=== PATIENT | female | born 1995 ===

== ENCOUNTER 2016-05-31 21:17 | Emergency (ER) | payer MEDICAID ==
[2016-05-31 21:18] VITALS: BMI 26.5
[2016-05-31 21:40] VITALS: BP 123/69; PULSE 72; RESP 16; TEMP 98.2; O2SAT 99
--- NOTE | 2016-05-31 22:13 | ED PDOC ---
HPI: Female Pain Time Seen by Provider: 05/31/16 21:53 Chief Complaint (Nursing): Female Genitourinary Chief Complaint (Provider): vaginal spotting History Per: Patient History/Exam Limitations: no limitations Onset/Duration Of Symptoms: Days (3) Current Symptoms Are (Timing): Still Present Quality Of Discomfort: Cramping Additional History Per: Patient Additional Complaint(s): 20 y/o female presents with vaginal spotting x 3 days. Associated suprapubic cramping, white vaginal discharge. Patient unsure if this is related or if it could just be the start of her period. Denies fever, nausea/vomiting, changes in bowel movements, dysuria, hematuria, new sex partner. Abnormal Vaginal Bleeding: Yes Last Menstral Period: 05/04/16 : 3 Para: 1 Miscarriage: 2 Past Medical History Reviewed: Historical Data, Nursing Documentation, Vital Signs Vital Signs: Last Vital Signs Temp 98.2 F 05/31/16 21:37 Pulse 72 05/31/16 21:37 Resp 16 05/31/16 21:37 BP 123/69 05/31/16 21:37 Pulse Ox 99 05/31/16 21:37 - Medical History PMH: Kidney Stones, Chronic Kidney Disease - Surgical History Surgical History: No Surg Hx - Family History Family History: States: Unknown Family Hx - Living Arrangements Living Arrangements: With Family - Immunization History Hx Tetanus Toxoid Vaccination: Yes Hx Influenza Vaccination: Yes Hx Pneumococcal Vaccination: No - Home Medications Home Medications: Ambulatory Orders Medication Instructions Recorded Acetaminophen [Tylenol Extra 500 mg PO Q6 #20 tablet 05/07/16 Strength] Fluconazole [Diflucan] 150 mg PO ONCE #1 tab 05/31/16 Ibuprofen [Motrin Tab] 1 tab PO Q6 PRN #15 tab 05/31/16 Nitrofurantoin Macrocrystals 100 mg PO BID #14 cap 05/31/16 [Macrobid] - Allergies Allergies/Adverse Reactions: Allergies Allergy/AdvReac Type Severity Reaction Status Date / Time No Known Allergies Allergy Verified 10/09/15 20:09 Review of Systems ROS Statement: Except As Marked, All Systems Reviewed And Found Negative Genitourinary Female: Positive for: Vaginal Discharge, Vaginal Bleeding, Pelvic Pain Physical Exam - Reviewed Nursing Documentation Reviewed: Yes Vital Signs Reviewed: Yes - Physical Exam Appears: Positive for: Well, Non-toxic, No Acute Distress Head Exam: Positive for: ATRAUMATIC, NORMAL INSPECTION, NORMOCEPHALIC Skin: Positive for: Normal Color Eye Exam: Positive for: Normal appearance Cardiovascular/Chest: Positive for: Regular Rate, Rhythm Respiratory: Positive for: Normal Breath Sounds Gastrointestinal/Abdominal: Positive for: Bowel Sounds, Soft, Tenderness ( suprapubic discomfort) Pelvic Exam: Positive for: External Exam Normal, No Cerv. Motion Tender, Discharge (white "cottage cheese" discharge noted vaginal vault), Other (exam chaperoned by Bartolo WILSON). Negative for: Active Bleeding Back: Positive for: Normal Inspection Extremity: Positive for: Normal ROM Neurologic/Psych: Positive for: Alert, Oriented - Laboratory Results Urine POC: Negative Urine dip results: Positive for: Leukocyte Esterase. Negative for: Blood, Nitrate, Ketones - ECG O2 Sat by Pulse Oximetry: 99 - Progress ED Course And Treament: ibuprofen, urine, genital cultures Patient educated on findings, discharged with rx ibuprofen, macrobid, diflucan. Advised follow up [employer]. Return to ED for worsening/concerning symptoms. Disposition - Clinical Impression Clinical Impression: Urinary tract infection, Vaginal candidiasis, Menstrual cramps - Patient ED Disposition Is Patient to be Admitted: No Counseled Patient/Family Regarding: Studies Performed, Diagnosis, Need For Followup, Rx Given - Disposition [facility] Destiney King MD [Staff Provider] - Disposition: Routine/Home Disposition Time: 22:44 Condition: GOOD Prescriptions: Fluconazole [Diflucan] 150 mg PO ONCE #1 tab Nitrofurantoin Macrocrystals [Macrobid] 100 mg PO BID #14 cap Ibuprofen [Motrin Tab] 1 tab PO Q6 PRN #15 tab PRN Reason: Pain, Moderate (4-7) Instructions: Urinary Tract Infection in Women (ED), Vulvovaginal Candidiasis ( ED)
[2016-05-31 22:28] LABS: RBC URINE 8 /hpf (0-3); URINE BACTERIA RARE (<OCC); URINE BILIRUBIN NEGATIVE (NEGATIVE); URINE BLOOD NEGATIVE (NEGATIVE); URINE COLOR YELLOW (YELLOW); URINE GLUCOSE (UA) NEG (Normal); URINE KETONE NEGATIVE (NEGATIVE); URINE LEUKOCYTE ESTERASE LARGE Leu/uL (Negative); URINE PROTEIN NEGATIVE (NEGATIVE); URINE UROBILINOGEN 0.2-1.0 mg/dL (0.2-1.0); WBC URINE 6 /hpf (0-5)
== END 2016-05-31 22:50 | disposition home or self-care (01) ==
LOC: H.ER 21:17
DX: N39.0 Urinary tract infection, site not specified (principal); N89.8 Other specified noninflammatory disorders of vagina; B37.3 Candidiasis of vulva and vagina

== ENCOUNTER 2016-06-06 23:26 | Emergency (ER) | payer MEDICAID ==
[2016-06-06 23:27] VITALS: BMI 26.5
[2016-06-06 23:40] VITALS: BP 136/72; PULSE 94; RESP 16; TEMP 98; O2SAT 100
[2016-06-07] MEDS ORDERED: Sodium Chloride 0.9% 1,000 ML IV STA (00:10)
--- NOTE | 2016-06-07 00:13 | ED PDOC ---
HPI: Headache Time Seen by Provider: 06/06/16 23:39 Chief Complaint (Nursing): Headache Chief Complaint (Provider): headache History Per: Patient History/Exam Limitations: no limitations Onset/Duration Of Symptoms: Days (1) Current Symptoms Are (Timing): Still Present Quality: "Pain" Associated Symptoms: Nausea, Vomiting Additional History Per: Patient Additional Complaint(s): 20 y/o female presents with frontal headache x 1 day. Associated nausea/ vomiting. Denies fever, dizziness, cough/congestion, chest pain, shortness of breath, palpitations, abdominal pain. Past Medical History Reviewed: Historical Data, Nursing Documentation, Vital Signs Vital Signs: Last Vital Signs Temp 98.0 F 06/06/16 23:37 Pulse 94 H 06/06/16 23:37 Resp 16 06/06/16 23:37 BP 136/72 06/06/16 23:37 Pulse Ox 100 06/06/16 23:37 - Family History Family History: States: Unknown Family Hx - Immunization History Hx Tetanus Toxoid Vaccination: Yes Hx Influenza Vaccination: Yes Hx Pneumococcal Vaccination: No - Home Medications Home Medications: Ambulatory Orders Medication Instructions Recorded Acetaminophen [Tylenol Extra 500 mg PO Q6 #20 tablet 05/07/16 Strength] Fluconazole [Diflucan] 150 mg PO ONCE #1 tab 05/31/16 Ibuprofen [Motrin Tab] 1 tab PO Q6 PRN #15 tab 05/31/16 Nitrofurantoin Macrocrystals 100 mg PO BID #14 cap 05/31/16 [Macrobid] Naproxen [Naprosyn Tab] 375 mg PO Q12 PRN #20 tab 06/07/16 Ondansetron [Zofran] 4 mg PO Q8H PRN #10 tab 06/07/16 - Allergies Allergies/Adverse Reactions: Allergies Allergy/AdvReac Type Severity Reaction Status Date / Time No Known Allergies Allergy Verified 10/09/15 20:09 Review of Systems ROS Statement: Except As Marked, All Systems Reviewed And Found Negative Gastrointestinal: Positive for: Nausea, Vomiting Neurological: Positive for: Headache Physical Exam - Reviewed Nursing Documentation Reviewed: Yes Vital Signs Reviewed: Yes - Physical Exam Appears: Positive for: Well, Non-toxic, Uncomfortable Head Exam: Positive for: ATRAUMATIC, NORMAL INSPECTION, NORMOCEPHALIC Skin: Positive for: Normal Color Eye Exam: Positive for: Normal appearance, EOMI, PERRL ENT: Positive for: Normal ENT Inspection Cardiovascular/Chest: Positive for: Regular Rate, Rhythm Respiratory: Positive for: Normal Breath Sounds Gastrointestinal/Abdominal: Positive for: Normal Exam Back: Positive for: Normal Inspection Extremity: Positive for: Normal ROM Neurologic/Psych: Positive for: Alert, Oriented - Laboratory Results Result Diagrams: 06/07/16 00:40 06/07/16 00:40 - ECG O2 Sat by Pulse Oximetry: 100 - Progress ED Course And Treament: labs, IV fluids, IV reglan On re-eval, patient sleeping; upon awakening notes improvement of headache. IV toradol ordered 2:45 Patient states headache resolved. Tolerating PO. Patient educated on findings, discharged with rx Naproxen, Zofran. Advised follow up PMD 2-3 days. Return to ED for worsening/concerning symptoms. Disposition - Clinical Impression Clinical Impression: Headache - Patient ED Disposition Is Patient to be Admitted: No Counseled Patient/Family Regarding: Studies Performed, Diagnosis, Need For Followup, Rx Given - Disposition Referrals: Sj Hart MD [Primary Care Provider] - Disposition: Routine/Home Disposition Time: 02:52 Condition: IMPROVED Prescriptions: Naproxen [Naprosyn Tab] 375 mg PO Q12 PRN #20 tab PRN Reason: Pain, Moderate (4-7) Ondansetron [Zofran] 4 mg PO Q8H PRN #10 tab PRN Reason: Nausea/Vomiting Instructions: Acute Headache (ED)
[2016-06-07 00:44] LABS: BASO # 0.1 K/uL (0.0-0.2); BASO % 0.6 % (0.0-2.0); EOS # 0.1 K/uL (0.0-0.7); EOS % 0.6 % (0.0-4.0); HEMATOCRIT 36.2 % (34.0-47.0); LYMPH # 1.7 K/uL (1.0-4.3); LYMPH % 17.2 % (20.0-40.0); MEAN CELL VOLUME 79.9 fl (81.0-99.0); MEAN CORPUSCULAR HEMOGLOBIN 25.5 pg (27.0-31.0); MEAN CORPUSCULAR HGB CONC 31.9 g/dL (33.0-37.0); MONO # 0.8 K/uL (0.0-0.8); MONO % 7.5 % (0.0-10.0); NEUT # 7.5 K/uL (1.8-7.0); NEUT % 74.1 % (50.0-75.0); RED CELL DISTRIBUTION WIDTH 15.7 % (11.5-14.5); WHITE BLOOD COUNT 10.1 K/uL (4.8-10.8)
[2016-06-07 01:17] LABS: ALB/GLOB RATIO 1.2 (1.0-2.1); ALKALINE PHOSPHATASE 68 U/L (38-126); ALT/SGPT 21 U/L (9-52); AST/SGOT 24 U/L (14-36); BILIRUBIN,TOTAL 0.4 mg/dl (0.2-1.3); BLOOD UREA NITROGEN 8 mg/dl (7-17); CALCIUM 9.7 mg/dL (8.4-10.2); CARBON DIOXIDE 23 mmol/L (22-30); CHLORIDE 105 mmol/L (98-107); GFR AFRICAN-AMERICAN > 60; GLUCOSE,RANDOM 119 mg/dL (65-105); SODIUM 137 mmol/l (132-148); TOTAL PROTEIN 8.3 G/DL (6.3-8.2)
== END 2016-06-07 03:13 | disposition home or self-care (01) ==
LOC: H.ER 23:26
DX: R51 Headache (principal)

== ENCOUNTER 2016-07-03 10:31 | Emergency (ER) | payer MEDICAID ==
[2016-07-03 10:31] VITALS: BMI 26.5
[2016-07-03 11:01] VITALS: BP 113/68; PULSE 68; RESP 20; TEMP 98.7; O2SAT 99
[2016-07-03] MEDS ORDERED: Sodium Chloride 0.9% 1,000 ML IV STA (11:09)
--- NOTE | 2016-07-03 11:44 | ED PDOC ---
HPI: General Adult Time Seen by Provider: 07/03/16 10:53 Chief Complaint (Nursing): Back Pain Chief Complaint (Provider): pelvic crampin History Per: Patient History/Exam Limitations: no limitations Additional Complaint(s): 20yo female complaining of pelvic cramping she developed last night. This morning cramping continued now with 3x episodes non-bloody vomit. She started menstruation yesterday and symptoms are consistent with previous cramps. States yesterday she did drink alcohol but did not take any medicine. Denies diarrhea, abdominal pain, hematemesis, dysuria, hematuria. Past Medical History Reviewed: Historical Data, Nursing Documentation, Vital Signs Vital Signs: Last Vital Signs Temp 98.7 F 07/03/16 10:58 Pulse 68 07/03/16 10:58 Resp 20 07/03/16 10:58 BP 113/68 07/03/16 10:58 Pulse Ox 99 07/03/16 12:01 - Medical History PMH: Kidney Stones, Chronic Kidney Disease - Surgical History Surgical History: No Surg Hx - Family History Family History: States: Unknown Family Hx - Immunization History Hx Tetanus Toxoid Vaccination: Yes Hx Influenza Vaccination: Yes Hx Pneumococcal Vaccination: No - Home Medications Home Medications: Ambulatory Orders Medication Instructions Recorded Acetaminophen [Tylenol Extra 500 mg PO Q6 #20 tablet 05/07/16 Strength] Fluconazole [Diflucan] 150 mg PO ONCE #1 tab 05/31/16 Ibuprofen [Motrin Tab] 1 tab PO Q6 PRN #15 tab 05/31/16 Nitrofurantoin Macrocrystals 100 mg PO BID #14 cap 05/31/16 [Macrobid] Naproxen [Naprosyn Tab] 375 mg PO Q12 PRN #20 tab 06/07/16 Ondansetron [Zofran] 4 mg PO Q8H PRN #10 tab 06/07/16 Naproxen [Naprosyn] 500 mg PO BID PRN #30 tab 07/03/16 Ondansetron ODT [Zofran ODT] 4 mg PO TID #21 odt 07/03/16 - Allergies Allergies/Adverse Reactions: Allergies Allergy/AdvReac Type Severity Reaction Status Date / Time No Known Allergies Allergy Verified 07/03/16 10:53 Review of Systems ROS Statement: Except As Marked, All Systems Reviewed And Found Negative Gastrointestinal: Positive for: Vomiting. Negative for: Abdominal Pain, Diarrhea, Hematemesis Genitourinary Female: Positive for: Pelvic Pain. Negative for: Dysuria, Hematuria Physical Exam - Reviewed Nursing Documentation Reviewed: Yes Vital Signs Reviewed: Yes - Physical Exam Appears: Positive for: Well, Non-toxic, No Acute Distress Head Exam: Positive for: ATRAUMATIC, NORMAL INSPECTION, NORMOCEPHALIC Skin: Positive for: Warm, Dry Eye Exam: Positive for: EOMI, PERRL Cardiovascular/Chest: Positive for: Regular Rate, Rhythm Respiratory: Positive for: Normal Breath Sounds. Negative for: Rales, Rhonchi, Wheezing Gastrointestinal/Abdominal: Positive for: Normal Exam, Soft. Negative for: Tenderness Extremity: Positive for: Normal ROM Neurologic/Psych: Positive for: Alert, Oriented - Laboratory Results Result Diagrams: 07/03/16 11:30 07/03/16 11:30 Urine POC: Negative Urine dip results: Positive for: Blood (moderate). Negative for: Leukocyte Esterase, Nitrate, Ketones, Glucose, Bilirubin, Protein - ECG O2 Sat by Pulse Oximetry: 99 (RA) Pulse Ox Interpretation: Normal - Progress Re-evaluation Time: 12:22 Condition: Re-examined, Improved Medical Decision Making Medical Decision Makin: Labs, toradol, zofran, IV fluids ordered. Disposition - Clinical Impression Clinical Impression: Dysmenorrhea - Patient ED Disposition Is Patient to be Admitted: No - Disposition Referrals: [facility] [Outside] Disposition: Routine/Home Disposition Time: 12:23 Condition: IMPROVED Prescriptions: Naproxen [Naprosyn] 500 mg PO BID PRN #30 tab PRN Reason: Pain Ondansetron ODT [Zofran ODT] 4 mg PO TID #21 odt Instructions: Dysmenorrhea (ED) Print Language: BENINESE Additional Comments - Additional Comments Additional Comments: Scribe Attestation: Documented by Yinka Tobias acting as a scribe for Hao Thurman PA-C. Provider Scribe Attestation: All medical record entries made by the Scribe were at my direction and personally dictated by me. I have reviewed the chart and agree that the record accurately reflects my personal performance of the history, physical exam, medical decision making, and the department course for this patient. I have also personally directed, reviewed, and agree with the discharge instructions and disposition.
[2016-07-03 12:06] LABS: BASO # 0.1 K/uL (0.0-0.2); BASO % 1.1 % (0.0-2.0); EOS % 0.6 % (0.0-4.0); HEMATOCRIT 38.5 % (34.0-47.0); LYMPH % 18.1 % (20.0-40.0); MEAN CELL VOLUME 78.6 fl (81.0-99.0); MEAN CORPUSCULAR HGB CONC 31.8 g/dL (33.0-37.0); MEAN PLATELET VOLUME 8.4 fl (7.2-11.7); MONO # 0.4 K/uL (0.0-0.8); MONO % 6.8 % (0.0-10.0); NEUT # 4.1 K/uL (1.8-7.0); NEUT % 73.4 % (50.0-75.0); NRBC % 0.1 % (0.0-0.0); RED CELL DISTRIBUTION WIDTH 15.2 % (11.5-14.5); WHITE BLOOD COUNT 5.6 K/uL (4.8-10.8)
[2016-07-03 12:16] LABS: ALKALINE PHOSPHATASE 75 U/L (38-126); ALT/SGPT 26 U/L (9-52); AST/SGOT 30 U/L (14-36); BILIRUBIN,TOTAL 0.5 mg/dl (0.2-1.3); BLOOD UREA NITROGEN 11 mg/dl (7-17); CALCIUM 9.4 mg/dL (8.4-10.2); CARBON DIOXIDE 22 mmol/L (22-30); CHLORIDE 105 mmol/L (98-107); GFR AFRICAN-AMERICAN > 60; GLUCOSE,RANDOM 92 mg/dL (65-105); POTASSIUM 4.3 MMOL/L (3.6-5.0); SODIUM 147 mmol/l (132-148); TOTAL PROTEIN 9.3 G/DL (6.3-8.2)
[2016-07-03 12:20] LABS: ALB/GLOB RATIO 1.2 (1.0-2.1)
== END 2016-07-03 12:45 | disposition home or self-care (01) ==
LOC: H.ER 10:31
DX: N94.6 Dysmenorrhea, unspecified (principal); M54.9 Dorsalgia, unspecified; N18.9 Chronic kidney disease, unspecified

== ENCOUNTER 2016-09-06 02:04 | Emergency (ER) | payer MEDICAID ==
[2016-09-06 02:05] VITALS: BMI 26.5
[2016-09-06 02:15] VITALS: BP 132/86; PULSE 94; RESP 18; TEMP 97.8; O2SAT 100
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
== END 2016-09-06 04:01 | disposition home or self-care (01) ==
LOC: H.ER 02:04
DX: S09.93XA Unspecified injury of face, initial encounter (principal); Y04.0XXA Assault by unarmed brawl or fight, initial encounter; Y92.89 Other specified places as the place of occurrence of the external cause; N18.9 Chronic kidney disease, unspecified

== ENCOUNTER 2016-11-28 23:56 | Emergency (ER) | payer MEDICAID ==
[2016-11-28 23:56] VITALS: BMI 26.5
[2016-11-29 00:03] VITALS: BP 144/88; PULSE 84; RESP 16; TEMP 98.6; O2SAT 100
--- NOTE | 2016-11-29 00:32 | ED PDOC ---
HPI: Headache Time Seen by Provider: 11/29/16 00:09 Chief Complaint (Nursing): Headache Chief Complaint (Provider): headache History Per: Patient History/Exam Limitations: no limitations Onset/Duration Of Symptoms: Days (1), Waxing/Waning Current Symptoms Are (Timing): Still Present Preceeding Symptoms: None Additional History Per: Patient Additional Complaint(s): 21 y/o female presents for eval of intermittent headache x 1 day. Symptoms improve with aspirin, taken at 17:00, but states headache returned a few hours after. Denies fever, neck pain, extremity numbness/weakness, vision changes, chest pain, shortness of breath, palpitations. Past Medical History Reviewed: Historical Data, Nursing Documentation, Vital Signs Vital Signs: Last Vital Signs Temp 98.6 F 11/29/16 00:00 Pulse 84 11/29/16 00:00 Resp 16 11/29/16 00:00 BP 144/88 11/29/16 00:00 Pulse Ox 100 11/29/16 00:00 - Medical History PMH: Kidney Stones, Chronic Kidney Disease - Surgical History Surgical History: No Surg Hx - Family History Family History: States: Unknown Family Hx - Immunization History Hx Tetanus Toxoid Vaccination: Yes Hx Influenza Vaccination: Yes Hx Pneumococcal Vaccination: No - Home Medications Home Medications: Ambulatory Orders Medication Instructions Recorded Acetaminophen [Tylenol Extra 500 mg PO Q6 #20 tablet 05/07/16 Strength] Fluconazole [Diflucan] 150 mg PO ONCE #1 tab 05/31/16 Ibuprofen [Motrin Tab] 1 tab PO Q6 PRN #15 tab 05/31/16 Nitrofurantoin Macrocrystals 100 mg PO BID #14 cap 05/31/16 [Macrobid] Naproxen [Naprosyn Tab] 375 mg PO Q12 PRN #20 tab 06/07/16 Ondansetron [Zofran] 4 mg PO Q8H PRN #10 tab 06/07/16 Naproxen [Naprosyn] 500 mg PO BID PRN #30 tab 07/03/16 Ondansetron ODT [Zofran ODT] 4 mg PO TID #21 odt 07/03/16 Ibuprofen [Motrin Tab] 1 tab PO Q6 PRN #20 tab 09/06/16 Naproxen [Naprosyn] 500 mg PO Q12 PRN #20 tablet 11/29/16 - Allergies Allergies/Adverse Reactions: Allergies Allergy/AdvReac Type Severity Reaction Status Date / Time No Known Allergies Allergy Verified 11/29/16 00:00 Review of Systems ROS Statement: Except As Marked, All Systems Reviewed And Found Negative Neurological: Positive for: Headache Physical Exam - Reviewed Nursing Documentation Reviewed: Yes Vital Signs Reviewed: Yes - Physical Exam Appears: Positive for: Well, Non-toxic, No Acute Distress Head Exam: Positive for: ATRAUMATIC, NORMAL INSPECTION, NORMOCEPHALIC Skin: Positive for: Normal Color Eye Exam: Positive for: Normal appearance, EOMI, PERRL ENT: Positive for: Normal ENT Inspection Cardiovascular/Chest: Positive for: Regular Rate, Rhythm Respiratory: Positive for: Normal Breath Sounds Gastrointestinal/Abdominal: Positive for: Normal Exam Back: Positive for: Normal Inspection Extremity: Positive for: Normal ROM Neurologic/Psych: Positive for: Alert, Oriented. Negative for: Motor/Sensory Deficits - ECG O2 Sat by Pulse Oximetry: 100 - Progress ED Course And Treament: Toradol IM on re-eval, patient resting comfortaby; states pain improved. Patient educated on findings, discharged with rx naproxen. Advised follow up PMD 2-3 days. Return to ED for worsening/concerning symptoms. Disposition - Clinical Impression Clinical Impression: Headache - Patient ED Disposition Is Patient to be Admitted: No Counseled Patient/Family Regarding: Diagnosis, Need For Followup, Rx Given - Disposition Referrals: Mina Ramirez DNP, COUNSELOR AIDE [Primary Care Provider] - Disposition: Routine/Home Disposition Time: 01:40 Condition: IMPROVED Prescriptions: Naproxen [Naprosyn] 500 mg PO Q12 PRN #20 tablet PRN Reason: Pain, Moderate (4-7) Instructions: Acute Headache (ED) Forms: [employer] ([employer]ajik)
== END 2016-11-29 01:53 | disposition home or self-care (01) ==
LOC: H.ER 23:56
DX: R51 Headache (principal)
CPT/HCPCS: 81025; 96372; 99284; J1885

== ENCOUNTER 2017-02-27 13:28 | Emergency (ER) | payer MEDICAID ==
[2017-02-27 13:28] VITALS: BMI 26.5
[2017-02-27 13:36] VITALS: BP 120/72; PULSE 80; RESP 18; TEMP 97.7; O2SAT 92
--- NOTE | 2017-02-27 13:52 | ED PDOC ---
HPI: Female Pain Time Seen by Provider: 02/27/17 13:41 Chief Complaint (Nursing): Abdominal Pain Chief Complaint (Provider): Pelvic pain History/Exam Limitations: no limitations Current Symptoms Are (Timing): Still Present Additional Complaint(s): Pt. with pelvic pain across lower. Vaginal white dc. No back pain. No fever, chest pain, dyspnea, dizziness, vomit, diarrhea. Had unprotected sex with 3 different partners. No dysuria. Had chlamydia 3 months ago. Past Medical History Reviewed: Historical Data, Nursing Documentation, Vital Signs Vital Signs: Last Vital Signs Temp 97.7 F 02/27/17 13:31 Pulse 80 02/27/17 13:31 Resp 18 02/27/17 13:31 BP 120/72 02/27/17 13:31 Pulse Ox 92 L 02/27/17 13:31 - Medical History Other PMH: std - Surgical History Surgical History: No Surg Hx - Family History Family History: States: Unknown Family Hx - Living Arrangements Living Arrangements: With Family - Social History Current smoker - smoking cessation education provided: No Alcohol: None Drugs: Denies - Immunization History Hx Tetanus Toxoid Vaccination: Yes Hx Influenza Vaccination: Yes Hx Pneumococcal Vaccination: No - Home Medications Home Medications: Ambulatory Orders Medication Instructions Recorded Acetaminophen [Tylenol Extra 500 mg PO Q6 #20 tablet 05/07/16 Strength] Fluconazole [Diflucan] 150 mg PO ONCE #1 tab 05/31/16 Ibuprofen [Motrin Tab] 1 tab PO Q6 PRN #15 tab 05/31/16 Nitrofurantoin Macrocrystals 100 mg PO BID #14 cap 05/31/16 [Macrobid] Naproxen [Naprosyn Tab] 375 mg PO Q12 PRN #20 tab 06/07/16 Ondansetron [Zofran] 4 mg PO Q8H PRN #10 tab 06/07/16 Naproxen [Naprosyn] 500 mg PO BID PRN #30 tab 07/03/16 Ondansetron ODT [Zofran ODT] 4 mg PO TID #21 odt 07/03/16 Ibuprofen [Motrin Tab] 1 tab PO Q6 PRN #20 tab 09/06/16 Naproxen [Naprosyn] 500 mg PO Q12 PRN #20 tablet 11/29/16 Doxycycline Monohydrate 100 mg PO BID 7 Days capsule 02/27/17 - Allergies Allergies/Adverse Reactions: Allergies Allergy/AdvReac Type Severity Reaction Status Date / Time No Known Allergies Allergy Verified 11/29/16 00:00 Review of Systems ROS Statement: Except As Marked, All Systems Reviewed And Found Negative Genitourinary Female: Positive for: Vaginal Discharge, Pelvic Pain. Negative for: Vaginal Bleeding Physical Exam - Reviewed Nursing Documentation Reviewed: Yes Vital Signs Reviewed: Yes - Physical Exam Appears: Positive for: Non-toxic, No Acute Distress Head Exam: Positive for: ATRAUMATIC, NORMAL INSPECTION, NORMOCEPHALIC Skin: Positive for: Normal Color, Warm, DRY Eye Exam: Positive for: EOMI, Normal appearance, PERRL ENT: Positive for: Normal ENT Inspection Neck: Positive for: Normal, Painless ROM Cardiovascular/Chest: Positive for: Regular Rate, Rhythm Respiratory: Positive for: CNT, Normal Breath Sounds Gastrointestinal/Abdominal: Positive for: Bowel Sounds, Soft, Tenderness ( across lower pelvic) Pelvic Exam: Positive for: Tender W/Cervical Motion, Tender Adnexa. Negative for: Speculum Exam Normal (mild cervantes dc. ) Back: Positive for: Normal Inspection. Negative for: L CVA Tenderness, R CVA Tenderness Extremity: Positive for: Normal ROM. Negative for: Tenderness, Pedal Edema Neurologic/Psych: Positive for: Alert, Oriented - Laboratory Results Result Diagrams: 02/27/17 14:19 02/27/17 14:19 Interpretation Of Abn Labs: no acute - ECG O2 Sat by Pulse Oximetry: 92 - CT Scan/US US Other Rad Studies (CT/US): Radiology Report Reviewed Other Rad Interpretation: no acute - Progress ED Course And Treament: 1558: Stable. AAOx3. Pain free. Tolerated PO. Fu with pcp. Will tx for possible std/cervicitis. Disposition - Clinical Impression Clinical Impression: Cervicitis - Patient ED Disposition Is Patient to be Admitted: No Counseled Patient/Family Regarding: Studies Performed, Diagnosis, Need For Followup, Rx Given - Disposition Referrals: [facility] [Outside] - 02/28/17 [facility] [Outside] - 02/28/17 Disposition: Routine/Home Disposition Time: 16:01 Condition: STABLE Additional Instructions: Return if not better in 3 days. Prescriptions: Doxycycline Monohydrate 100 mg PO BID 7 Days capsule Instructions: Cervicitis (ED) Forms: [facility] ED School/Work Excuse
[2017-02-27 14:27] LABS: BASO # 0.1 K/uL (0.0-0.2); EOS # 0.2 K/uL (0.0-0.7); HEMATOCRIT 34.1 % (34.0-47.0); LYMPH # 1.5 K/uL (1.0-4.3); LYMPH % 29.2 % (20.0-40.0); MEAN CELL VOLUME 79.8 fl (81.0-99.0); MEAN CORPUSCULAR HEMOGLOBIN 25.6 pg (27.0-31.0); MEAN CORPUSCULAR HGB CONC 32.1 g/dL (33.0-37.0); MONO # 0.4 K/uL (0.0-0.8); MONO % 8.3 % (0.0-10.0); NEUT % 58.5 % (50.0-75.0); NRBC % 0.1 % (0.0-0.0); WHITE BLOOD COUNT 5.2 K/uL (4.8-10.8)
[2017-02-27 14:35] LABS: ALB/GLOB RATIO 1.3 (1.0-2.1); ALKALINE PHOSPHATASE 64 U/L (38-126); ALT/SGPT 33 U/L (9-52); AST/SGOT 19 U/L (14-36); BILIRUBIN,TOTAL 0.2 mg/dl (0.2-1.3); BLOOD UREA NITROGEN 14 mg/dl (7-17); CALCIUM 9.1 mg/dL (8.4-10.2); CARBON DIOXIDE 23 mmol/L (22-30); CHLORIDE 107 mmol/L (98-107); GFR AFRICAN-AMERICAN > 60; GLUCOSE,RANDOM 85 mg/dL (65-105); SODIUM 140 mmol/l (132-148); TOTAL PROTEIN 7.6 G/DL (6.3-8.2)
[2017-02-27] MEDS: Sodium Chloride 0.9% 1,000 ML IV STA (14:38)
--- NOTE | 2017-02-27 16:00 | US ---
HISTORY: vaginal bleeding COMPARISON: OB ultrasound performed 08/16/14 TECHNIQUE: Transvaginal pelvic ultrasound FINDINGS: UTERUS: Measures 6.7 x 3.2 x 5.6 cm. Retroverted. ENDOMETRIUM: Measures 7 mm in diameter. CERVIX: Tiny nabothian cyst. RIGHT OVARY: Measures 3.6 x 2.6 x 2.8 cm. Blood flow is demonstrated. 1.8 x 1.4 x 1.7 cm right ovarian follicle/cyst. LEFT OVARY: Measures 2.1 x 1.6 x 1.9 cm. Blood flow is demonstrated. FREE FLUID: No significant free fluid noted. OTHER FINDINGS: None. IMPRESSION: 1.8 x 1.4 x 1.7 cm right ovarian follicle/cyst. This examination is predicated on a negative test. Correlate clinically.
[2017-02-27] MEDS ORDERED: Sterile Water 10 ML IV ONE (16:14)
[2017-02-27] MEDS ORDERED: cefTRIAXone (Rocephin) 250 mg Inj ONE (16:14)
[2017-02-27] MEDS: cefTRIAXone (Rocephin) 250 mg Inj IM STA (16:15)
== END 2017-02-27 16:34 | disposition home or self-care (01) ==
LOC: H.ER 13:28
DX: N72 Inflammatory disease of cervix uteri (principal); N93.9 Abnormal uterine and vaginal bleeding, unspecified
CPT/HCPCS: 76830; 80053; 81025; 85025; 87491; 87591; 96361; 96374; 99282; J1885; J7040

== ENCOUNTER 2017-03-04 05:33 | Emergency (ER) | payer MEDICAID ==
[2017-03-04 05:52] VITALS: BMI 23.0
[2017-03-04 05:56] VITALS: BP 139/66; PULSE 94; RESP 16; TEMP 98.6; O2SAT 100
--- NOTE | 2017-03-04 06:24 | ED PDOC ---
Lower Extremity Pain/Injury Time Seen by Provider: 03/04/17 05:58 Chief Complaint (Nursing): Lower Extremity Problem/Injury History Per: Patient History/Exam Limitations: no limitations Onset/Duration Of Symptoms: Days Current Symptoms Are (Timing): Still Present Severity: Severe Pain Scale Rating Of: 8 Additional Complaint(s): 21 YO Female with PMH of CKD and renal stones presents to [facility] ED after a L foot injury. 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 Pt was able to walk on affected feet after the injury last night. Initially there was minimal pain, but this morning, pain was intense and her foot was swollen and red. Pt put ice on her feet which helped the swelling and mild improvement in pain. Pt is not able to bear weight on LLE. Denies chest pain, dyspnea, n/v/d/c and has remained afebrile. PMH: CKD and renal stones SurgH: denies SH: denies smoking, ETOH and illicit drug use FH: pt not aware Meds: none Allergies: NKDA - Ankle/Foot Description Of Injury: Struck Against Object (pole) Currently Unable To: Bear Weight Alleviating Factor(s): Ice Therapy Past Medical History Vital Signs: Last Vital Signs Temp 98.6 F 03/04/17 05:52 Pulse 94 H 03/04/17 05:52 Resp 16 03/04/17 05:52 BP 139/66 03/04/17 05:52 Pulse Ox 100 03/04/17 05:52 - Medical History PMH: Kidney Stones, Chronic Kidney Disease - Surgical History Surgical History: No Surg Hx - Family History Family History: States: Unknown Family Hx - Social History Current smoker - smoking cessation education provided: No Alcohol: None Drugs: Denies - Immunization History Hx Tetanus Toxoid Vaccination: Yes Hx Influenza Vaccination: Yes Hx Pneumococcal Vaccination: No - Home Medications Home Medications: Ambulatory Orders Medication Instructions Recorded Acetaminophen [Tylenol Extra 500 mg PO Q6 #20 tablet 05/07/16 Strength] Fluconazole [Diflucan] 150 mg PO ONCE #1 tab 05/31/16 Ibuprofen [Motrin Tab] 1 tab PO Q6 PRN #15 tab 05/31/16 Nitrofurantoin Macrocrystals 100 mg PO BID #14 cap 05/31/16 [Macrobid] Naproxen [Naprosyn Tab] 375 mg PO Q12 PRN #20 tab 06/07/16 Ondansetron [Zofran] 4 mg PO Q8H PRN #10 tab 06/07/16 Naproxen [Naprosyn] 500 mg PO BID PRN #30 tab 07/03/16 Ondansetron ODT [Zofran ODT] 4 mg PO TID #21 odt 07/03/16 Ibuprofen [Motrin Tab] 1 tab PO Q6 PRN #20 tab 09/06/16 Naproxen [Naprosyn] 500 mg PO Q12 PRN #20 tablet 11/29/16 Doxycycline Monohydrate 100 mg PO BID 7 Days capsule 02/27/17 - Allergies Allergies/Adverse Reactions: Allergies Allergy/AdvReac Type Severity Reaction Status Date / Time No Known Allergies Allergy Verified 03/04/17 05:52 Review of Systems Constitutional: Negative for: Fever, Chills Eyes: Negative for: Pain ENT: Negative for: Ear Pain Cardiovascular: Negative for: Chest Pain, Palpitations Respiratory: Negative for: Cough, Shortness of Breath Gastrointestinal: Negative for: Nausea, Vomiting, Abdominal Pain Genitourinary Female: Negative for: Dysuria, Hematuria Musculoskeletal: Positive for: Foot Pain (L) Neurological: Negative for: Weakness, Numbness Physical Exam - Physical Exam Appears: Positive for: Well, No Acute Distress Head Exam: Positive for: ATRAUMATIC, NORMAL INSPECTION Skin: Positive for: Normal Color, Warm, Dry Eye Exam: Positive for: Normal appearance, EOMI Neck: Positive for: Normal, Painless ROM Cardiovascular/Chest: Positive for: Regular Rate, Rhythm. Negative for: Murmur Respiratory: Positive for: Normal Breath Sounds. Negative for: Wheezing Gastrointestinal/Abdominal: Positive for: Normal Exam, Bowel Sounds, Soft. Negative for: Tenderness Extremity: Positive for: Normal ROM, Tenderness (tenderness to palaption of the L midfoot, Edema and erythema noted. Palpable pedal pulse, 2+ b/l ), Capillary Refill (<2 sec b/l ), Swelling (L foot ), Other (Sensory and motor intract ). Negative for: Deformity Neurologic/Psych: Positive for: Alert, Oriented - ECG O2 Sat by Pulse Oximetry: 100 - Progress ED Course And Treament: 21 YO female with PMH of renal stones is seen in ED for LLE foot injury. Xray of L foot ordered Preg test Ibuprofen 600mg Pt feels better, pain has improved Xray of L foot appreciated, no fractures seen (read by me) Pt is referred to Podiatry clinic for follow up Will d/c home with BETITO, crutches and ibuprofen for pain. Disposition - Clinical Impression Clinical Impression: Contusion, foot - Patient ED Disposition Is Patient to be Admitted: No - Disposition Referrals: Podiatry Clinic [Outside] Disposition Time: 07:00 Condition: STABLE Additional Instructions: Please return to ED if pain persists or worsens Follow up in podiatry clinic. Instructions: Foot Contusion (ED) Forms: [facility] (Indonesian)
--- NOTE | 2017-03-04 09:04 | RAD ---
PROCEDURE: Left Foot Radiographs. HISTORY: foot pain COMPARISON: None. FINDINGS: BONES: No acute fracture or destructive bony lesion identified. JOINTS: No dislocation or subluxation. No degenerative changes appreciated. SOFT TISSUES: Normal. OTHER FINDINGS: None. IMPRESSION: Normal left foot radiographs.
== END 2017-03-04 07:15 | disposition home or self-care (01) ==
LOC: H.ER 05:33
DX: S90.32XA Contusion of left foot, initial encounter (principal); W22.8XXA Striking against or struck by other objects, initial encounter; Y99.0 Civilian activity done for income or pay; Z87.442 Personal history of urinary calculi

== ENCOUNTER 2017-04-04 07:42 | Emergency (ER) | payer MEDICAID ==
[2017-04-04 07:42] VITALS: BMI 23.0
[2017-04-04 07:50] VITALS: BP 130/70; PULSE 96; RESP 19; TEMP 98.6; O2SAT 100
--- NOTE | 2017-04-04 08:34 | ED PDOC ---
HPI: CCC, URI, Sore Throat Time Seen by Provider: 04/04/17 07:56 Chief Complaint (Nursing): ENT Problem History Per: Patient (21 yo female presenting with acute onset of right ear pain last night. She has had cold symptoms for one week. She has not seen her PMD. She took Nyquill last night. ) History/Exam Limitations: no limitations Past Medical History Reviewed: Historical Data, Nursing Documentation, Vital Signs Vital Signs: Last Vital Signs Temp 98.6 F 04/04/17 07:49 Pulse 96 H 04/04/17 07:49 Resp 19 04/04/17 07:49 BP 130/70 04/04/17 07:49 Pulse Ox 100 04/04/17 07:49 - Medical History PMH: No Chronic Diseases, Kidney Stones, Chronic Kidney Disease - Surgical History Surgical History: No Surg Hx - Family History Family History: States: Unknown Family Hx - Living Arrangements Living Arrangements: With Family - Immunization History Hx Tetanus Toxoid Vaccination: Yes Hx Influenza Vaccination: Yes Hx Pneumococcal Vaccination: No - Home Medications Home Medications: Ambulatory Orders Medication Instructions Recorded Acetaminophen [Tylenol Extra 500 mg PO Q6 #20 tablet 05/07/16 Strength] Fluconazole [Diflucan] 150 mg PO ONCE #1 tab 05/31/16 Ibuprofen [Motrin Tab] 1 tab PO Q6 PRN #15 tab 05/31/16 Nitrofurantoin Macrocrystals 100 mg PO BID #14 cap 05/31/16 [Macrobid] Naproxen [Naprosyn Tab] 375 mg PO Q12 PRN #20 tab 06/07/16 Ondansetron [Zofran] 4 mg PO Q8H PRN #10 tab 06/07/16 Naproxen [Naprosyn] 500 mg PO BID PRN #30 tab 07/03/16 Ondansetron ODT [Zofran ODT] 4 mg PO TID #21 odt 07/03/16 Ibuprofen [Motrin Tab] 1 tab PO Q6 PRN #20 tab 09/06/16 Naproxen [Naprosyn] 500 mg PO Q12 PRN #20 tablet 11/29/16 Doxycycline Monohydrate 100 mg PO BID 7 Days capsule 02/27/17 Amoxicillin 500 mg PO TID #30 tablet 04/04/17 Guaifenesin/Pseudoephedrne HCl 1 ter PO Q12H PRN #10 ter 04/04/17 [Mucinex D 600 mg-60 mg] Naproxen [Naprosyn] 500 mg PO BID PRN #10 tablet 04/04/17 - Allergies Allergies/Adverse Reactions: Allergies Allergy/AdvReac Type Severity Reaction Status Date / Time No Known Allergies Allergy Verified 03/04/17 05:52 Review of Systems ROS Statement: Except As Marked, All Systems Reviewed And Found Negative Constitutional: Negative for: Fever ENT: Positive for: Ear Pain Respiratory: Positive for: Cough Physical Exam - Reviewed Nursing Documentation Reviewed: Yes Vital Signs Reviewed: Yes - Physical Exam Appears: Positive for: Non-toxic, No Acute Distress, Uncomfortable Skin: Positive for: Normal Color, Warm, DRY Eye Exam: Positive for: EOMI, Normal appearance, PERRL ENT: Positive for: TM Is/Are (erythematous on the right side - intensely) Neck: Positive for: Normal, Painless ROM Cardiovascular/Chest: Positive for: Regular Rate, Rhythm Respiratory: Positive for: CNT, Normal Breath Sounds - ECG O2 Sat by Pulse Oximetry: 100 Disposition - Clinical Impression Clinical Impression: Otitis media, right - Patient ED Disposition Is Patient to be Admitted: No Doctor Will See Patient In The: Office - Disposition Referrals: Mina Ramirez, DNP, EVENT SALES REPRESENTATIVE [Advanced Practice Nurse] - Disposition: Routine/Home Disposition Time: 08:35 Condition: STABLE Prescriptions: Amoxicillin 500 mg PO TID #30 tablet Guaifenesin/Pseudoephedrne HCl [Mucinex D 600 mg-60 mg] 1 ter PO Q12H PRN #10 ter PRN Reason: cough/congestion Naproxen [Naprosyn] 500 mg PO BID PRN #10 tablet PRN Reason: Pain, Moderate (4-7) Instructions: Otitis Media (ED) - POA Present On Arrival: None
== END 2017-04-04 09:16 | disposition home or self-care (01) ==
LOC: H.ER 07:42
DX: H66.91 Otitis media, unspecified, right ear (principal)

== ENCOUNTER 2017-05-03 20:36 | Emergency (ER) | payer SELFPAY ==
[2017-05-03 20:37] VITALS: BMI 23.0
[2017-05-03 20:46] VITALS: BP 112/67; PULSE 62; RESP 16; TEMP 98.7; O2SAT 100
--- NOTE | 2017-05-03 21:20 | ED PDOC ---
HPI: Skin/Bite Injury Time Seen by Provider: 05/03/17 20:57 Chief Complaint (Nursing): Abnormal Skin Integrity Chief Complaint (Provider): Pain to right buttock History Per: Patient History/Exam Limitations: no limitations Onset/Duration Of Symptoms: Days (x 5) Current Symptoms Are (Timing): Still Present Additional Complaint(s): 21 year old female presents to the ER complaining of pain and swelling to the right buttock, onset 5 days ago. States it initially looked like a pimple but now has worsened. Patient also reports fever, with Tmax of 101.9 axillary at home. Taking Tylenol without relief of pain, last dose was 4 hours ago. LMP was 03/31/17 and patient unsure of whether she's (requesting test at this time). Of note, patient denies any history of abscesses. Otherwise: (-) chills (-) nausea (-) vomiting (-) abdominal pain (-) chest pain (-) cough. TETANUS: up to date. PMD: [facility] (Mina Ramirez) Past Medical History Reviewed: Historical Data, Nursing Documentation, Vital Signs Vital Signs: Last Vital Signs Temp 98.7 F 05/03/17 20:46 Pulse 62 05/03/17 20:46 Resp 16 05/03/17 20:46 BP 112/67 05/03/17 20:46 Pulse Ox 100 05/03/17 21:27 - Medical History PMH: Kidney Stones, Chronic Kidney Disease - Family History Family History: States: Unknown Family Hx - Social History Current smoker - smoking cessation education provided: Yes (2-3 cigarettes per day) Alcohol: None Drugs: Denies - Immunization History Hx Tetanus Toxoid Vaccination: Yes Hx Influenza Vaccination: Yes Hx Pneumococcal Vaccination: No - Home Medications Home Medications: Ambulatory Orders Medication Instructions Recorded Acetaminophen [Tylenol Extra 500 mg PO Q6 #20 tablet 05/07/16 Strength] Fluconazole [Diflucan] 150 mg PO ONCE #1 tab 05/31/16 Ibuprofen [Motrin Tab] 1 tab PO Q6 PRN #15 tab 05/31/16 Nitrofurantoin Macrocrystals 100 mg PO BID #14 cap 05/31/16 [Macrobid] Naproxen [Naprosyn Tab] 375 mg PO Q12 PRN #20 tab 06/07/16 Ondansetron [Zofran] 4 mg PO Q8H PRN #10 tab 06/07/16 Naproxen [Naprosyn] 500 mg PO BID PRN #30 tab 07/03/16 Ondansetron ODT [Zofran ODT] 4 mg PO TID #21 odt 07/03/16 Ibuprofen [Motrin Tab] 1 tab PO Q6 PRN #20 tab 09/06/16 Naproxen [Naprosyn] 500 mg PO Q12 PRN #20 tablet 11/29/16 Doxycycline Monohydrate 100 mg PO BID 7 Days capsule 02/27/17 Amoxicillin 500 mg PO TID #30 tablet 04/04/17 Guaifenesin/Pseudoephedrne HCl 1 ter PO Q12H PRN #10 ter 04/04/17 [Mucinex D 600 mg-60 mg] Naproxen [Naprosyn] 500 mg PO BID PRN #10 tablet 04/04/17 Cephalexin [Keflex] 500 mg PO QID #28 capsule 05/03/17 Sulfamethoxazole/Trimethoprim 1 tab PO BID #14 tab 05/03/17 [Bactrim DS 800 mg-160 mg] - Allergies Allergies/Adverse Reactions: Allergies Allergy/AdvReac Type Severity Reaction Status Date / Time No Known Allergies Allergy Verified 03/04/17 05:52 Review of Systems ROS Statement: Except As Marked, All Systems Reviewed And Found Negative Constitutional: Positive for: Fever Skin: Positive for: Other (swollen, painful region to right buttocks) Physical Exam - Reviewed Nursing Documentation Reviewed: Yes Vital Signs Reviewed: Yes - Physical Exam Appears: Positive for: Well, Non-toxic, No Acute Distress Head Exam: Positive for: ATRAUMATIC, NORMAL INSPECTION, NORMOCEPHALIC Skin: Positive for: Normal Color, Warm, Dry, Rash (1cm x 1cm abscess with central scab to inferior aspect of right buttock. (+) localized tenderness and surrounding erythema. (-) active drainage (+) mild swelling) Eye Exam: Positive for: EOMI, Normal appearance, PERRL Neck: Positive for: Painless ROM, Supple. Negative for: Pain On Movement Of Neck Cardiovascular/Chest: Positive for: Regular Rate, Rhythm. Negative for: Murmur Respiratory: Positive for: Normal Breath Sounds. Negative for: Decreased Breath Sounds, Accessory Muscle Use, Respiratory Distress Gastrointestinal/Abdominal: Positive for: Normal Exam, Soft. Negative for: Tenderness, Mass, Distended, Guarding Extremity: Positive for: Normal ROM. Negative for: Deformity Neurologic/Psych: Positive for: Alert, Oriented (x3) - ECG O2 Sat by Pulse Oximetry: 100 (RA) Pulse Ox Interpretation: Normal Medical Decision Making Medical Decision Making: Clinical Impression: Abscess to right buttocks Time: 21:23 Plan: --Urine --Keflex 500 mg PO --Toradol 30 mg IM --Bactrim 1 tab PO --Reevaluation Upon provider evaluation patient is medically stable, and requires no further treatment in the ED at this time. Patient will be discharged home with Rx for antibiotics. Advised to apply warm compress. Educated on signs and symptoms that should prompt immediate return to ED. Counseling was provided and all questions were answered regarding diagnosis and need for follow up with PMD. There is agreement to discharge plan. Return if symptoms persist or worsen. Scribe Attestation: Documented by Arabella Goodwin, acting as a scribe for Lashell Corona PA-C Provider Scribe Attestation: All medical record entries made by the Scribe were at my direction and personally dictated by me. I have reviewed the chart and agree that the record accurately reflects my personal performance of the history, physical exam, medical decision making, and the department course for this patient. I have also personally directed, reviewed, and agree with the discharge instructions and disposition. Disposition - Clinical Impression Clinical Impression: Cellulitis and abscess of buttock - Patient ED Disposition Is Patient to be Admitted: No Counseled Patient/Family Regarding: Diagnosis, Need For Followup, Rx Given - Disposition Referrals: Mina Ramirez, CHELY, ARCHITECTURAL ENGINEER [Advanced Practice Nurse] - Disposition: Routine/Home Disposition Time: 22:13 Condition: STABLE Prescriptions: Cephalexin [Keflex] 500 mg PO QID #28 capsule Sulfamethoxazole/Trimethoprim [Bactrim DS 800 mg-160 mg] 1 tab PO BID #14 tab Instructions: Skin Abscess, Cellulitis (Skin Infection), Adult (DC) Forms: [employer] (Serbian) Print Language: WELSH - POA Present On Arrival: None
[2017-05-03] MEDS ORDERED: Tmp-Smz 800 mg-160 mg DS Tab PO STA (21:23)
[2017-05-03] MEDS ORDERED: Tmp-Smz 800 mg-160 mg DS Tab ONE (21:52)
== END 2017-05-03 22:21 | disposition home or self-care (01) ==
LOC: H.ER 20:36
DX: L02.31 Cutaneous abscess of buttock (principal)

== ENCOUNTER 2017-08-11 23:11 | Emergency (ER) | payer MEDICAID ==
[2017-08-11 23:11] VITALS: BMI 23.0
[2017-08-11 23:17] VITALS: TEMP 97.4
--- NOTE | 2017-08-11 23:55 | ED PDOC ---
HPI: Female Pain Time Seen by Provider: 08/11/17 23:34 Chief Complaint (Nursing): Female Genitourinary Chief Complaint (Provider): Pelvic cramping, vaginal bleeding - 10 weeks History Per: Patient History/Exam Limitations: no limitations Onset/Duration Of Symptoms: Days Current Symptoms Are (Timing): Still Present Severity: Moderate Pain Scale Rating Of: 7 Quality Of Discomfort: Cramping Associated Symptoms: denies: Loss Of Appetite, Back Pain, Chest Pain, Constipation, Urinary Symptoms Additional Complaint(s): 21 yo at 10 weeks presents with abdominal cramping 7-10 and reports vaginal bleeding bright red without clots yesterday. No medications for pain at home. Past Medical History Reviewed: Historical Data, Nursing Documentation, Vital Signs Vital Signs: Last Vital Signs Temp 97.4 F L 08/11/17 23:14 Pulse 104 H 08/11/17 23:14 Resp 18 08/11/17 23:14 BP 136/84 08/11/17 23:14 Pulse Ox 99 08/11/17 23:14 - Medical History PMH: Kidney Stones, Chronic Kidney Disease - Surgical History Surgical History: No Surg Hx - Family History Family History: States: Unknown Family Hx - Living Arrangements Living Arrangements: With Family - Social History Current smoker - smoking cessation education provided: No - Immunization History Hx Tetanus Toxoid Vaccination: Yes Hx Influenza Vaccination: Yes Hx Pneumococcal Vaccination: No - Home Medications Home Medications: Ambulatory Orders Medication Instructions Recorded Acetaminophen [Tylenol Extra 500 mg PO Q6 #20 tablet 05/07/16 Strength] Fluconazole [Diflucan] 150 mg PO ONCE #1 tab 05/31/16 Ibuprofen [Motrin Tab] 1 tab PO Q6 PRN #15 tab 05/31/16 Nitrofurantoin Macrocrystals 100 mg PO BID #14 cap 05/31/16 [Macrobid] Naproxen [Naprosyn Tab] 375 mg PO Q12 PRN #20 tab 06/07/16 Ondansetron [Zofran] 4 mg PO Q8H PRN #10 tab 06/07/16 Naproxen [Naprosyn] 500 mg PO BID PRN #30 tab 07/03/16 Ondansetron ODT [Zofran ODT] 4 mg PO TID #21 odt 07/03/16 Ibuprofen [Motrin Tab] 1 tab PO Q6 PRN #20 tab 06/21/17 Naproxen [Naprosyn] 500 mg PO Q12 PRN #20 tablet 11/29/16 Doxycycline Monohydrate 100 mg PO BID 7 Days capsule 02/27/17 Amoxicillin 500 mg PO TID #30 tablet 04/04/17 Guaifenesin/Pseudoephedrne HCl 1 ter PO Q12H PRN #10 ter 04/04/17 [Mucinex D 600 mg-60 mg] Naproxen [Naprosyn] 500 mg PO BID PRN #10 tablet 04/04/17 Cephalexin [Keflex] 500 mg PO QID #28 capsule 05/03/17 Sulfamethoxazole/Trimethoprim 1 tab PO BID #14 tab 05/03/17 [Bactrim DS 800 mg-160 mg] - Allergies Allergies/Adverse Reactions: Allergies Allergy/AdvReac Type Severity Reaction Status Date / Time No Known Allergies Allergy Verified 08/11/17 23:14 Review of Systems ROS Statement: Except As Marked, All Systems Reviewed And Found Negative Constitutional: Negative for: Fever, Chills Genitourinary Female: Positive for: Vaginal Bleeding, Pelvic Pain Physical Exam - Reviewed Nursing Documentation Reviewed: Yes Vital Signs Reviewed: Yes - Physical Exam Appears: Positive for: Well, Non-toxic, No Acute Distress Head Exam: Positive for: ATRAUMATIC, NORMAL INSPECTION, NORMOCEPHALIC Skin: Positive for: Normal Color, Warm, DRY Eye Exam: Positive for: Normal appearance ENT: Positive for: Normal ENT Inspection Neck: Positive for: Normal, Painless ROM Cardiovascular/Chest: Positive for: Regular Rate, Rhythm Respiratory: Positive for: Normal Breath Sounds. Negative for: Accessory Muscle Use, Respiratory Distress Gastrointestinal/Abdominal: Positive for: Soft, Tenderness (Suprapubic) Back: Positive for: Normal Inspection Extremity: Positive for: Normal ROM Neurologic/Psych: Positive for: Alert, Oriented - Laboratory Results Result Diagrams: 08/12/17 00:27 08/12/17 00:27 - ECG O2 Sat by Pulse Oximetry: 99 Medical Decision Making Medical Decision Making: US (+) FHT, cervix closed Blood type 0+ No leuks, no nitrites on urine dip Disposition - Clinical Impression Clinical Impression: Abdominal pain affecting - Patient ED Disposition Is Patient to be Admitted: No Counseled Patient/Family Regarding: Diagnosis, Need For Followup - Disposition Disposition: Routine/Home Disposition Time: 02:07 Condition: GOOD Additional Instructions: Tylenol for pain. Please follow-up with OB. Instructions: Round Ligament Pain Forms: [facility] (Spanish)
[2017-08-12] MEDS: Lactated Ringer's 1,000 ML IV SCH ×2 (00:14→01:23)
[2017-08-12 00:34] LABS: BASO % 0.4 % (0.0-2.0); EOS % 0.2 % (0.0-4.0); LYMPH # 1.3 K/uL (1.0-4.3); LYMPH % 14.1 % (20.0-40.0); MEAN CELL VOLUME 81.5 fl (81.0-99.0); MEAN CORPUSCULAR HEMOGLOBIN 26.9 pg (27.0-31.0); MEAN PLATELET VOLUME 8.8 fl (7.2-11.7); MONO # 0.5 K/uL (0.0-0.8); MONO % 5.6 % (0.0-10.0); NEUT # 7.2 K/uL (1.8-7.0); NEUT % 79.7 % (50.0-75.0); RBC 4.07 Mil/uL (3.80-5.20); RED CELL DISTRIBUTION WIDTH 17.2 % (11.5-14.5); WHITE BLOOD COUNT 9.1 K/uL (4.8-10.8)
[2017-08-12 00:43] LABS: ALT/SGPT 19 U/L (9-52); AST/SGOT 17 U/L (14-36); BLOOD UREA NITROGEN 8 mg/dl (7-17); CALCIUM 9.4 mg/dL (8.4-10.2); GFR AFRICAN-AMERICAN > 60; GFR NON-AFRICAN AMERICAN > 60
--- NOTE | 2017-08-12 01:57 | US ---
EXAM: US Uterus, Limited CLINICAL HISTORY: 21 years old, female; Pain; Other: As per pt cramping; Gestational age or lmp: 06/02/17; ; Additional info: Vaginal bleeding in TECHNIQUE: Real-time ultrasound of the maternal uterus (limited) with image documentation. COMPARISON: US - BIOPHYSICAL PROFILE 2015-02-16 19:31 FINDINGS: Fetus: Single intrauterine gestational sac with pole. Yolk sac not visualized. Nadine-rump length corresponds to estimated menstrual age of 11 weeks 1 day. Heart rate: Cardiac activity with a heart rate of 161 beats per minute. Uterus: Uterus measures 9.7 x 7.1 x 7.8 CM. Cervix: Cervix is closed. Adnexa: Right ovary is unremarkable. Left ovary is not visualized. IMPRESSION: Single intrauterine at approximately 11 weeks 1 day menstrual age, with cardiac activity. Clinical followup.
[2017-08-12 02:26] VITALS: BP 120/72; PULSE 91; RESP 20; O2SAT 100
== END 2017-08-12 02:41 | disposition home or self-care (01) ==
LOC: H.ER 23:11
DX: O26.91 Pregnancy related conditions, unspecified, first trimester (principal); R10.2 Pelvic and perineal pain; N18.9 Chronic kidney disease, unspecified; O20.9 Hemorrhage in early pregnancy, unspecified; Z87.442 Personal history of urinary calculi; Z3A.10 10 weeks gestation of pregnancy
CPT/HCPCS: 76815; 80053; 81025; 84702; 85025; 86850; 86900; 96360; 99284; J7120

== ENCOUNTER 2017-09-09 13:24 | Emergency (ER) | payer OTHER, MEDICAID ==
[2017-09-09 13:25] VITALS: BMI 23.0
[2017-09-09] MEDS ORDERED: Sodium Chloride 0.9% 1,000 ML IV STA ×2 (14:03→16:18)
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
[2017-09-09 14:33] LABS: BASO % 0.4 % (0.0-2.0); EOS # 0.1 K/uL (0.0-0.7); EOS % 1.4 % (0.0-4.0); HEMOGLOBIN 10.8 g/dL (12.0-16.0); LYMPH # 1.1 K/uL (1.0-4.3); LYMPH % 17.1 % (20.0-40.0); MEAN CELL VOLUME 84.4 fl (81.0-99.0); MEAN CORPUSCULAR HEMOGLOBIN 28.2 pg (27.0-31.0); MEAN CORPUSCULAR HGB CONC 33.4 g/dL (33.0-37.0); MEAN PLATELET VOLUME 8.5 fl (7.2-11.7); MONO # 0.5 K/uL (0.0-0.8); MONO % 7.6 % (0.0-10.0); NEUT # 4.8 K/uL (1.8-7.0); NEUT % 73.5 % (50.0-75.0); RBC 3.81 Mil/uL (3.80-5.20); RED CELL DISTRIBUTION WIDTH 17.4 % (11.5-14.5); WHITE BLOOD COUNT 6.6 K/uL (4.8-10.8)
[2017-09-09 14:40] LABS: BLOOD UREA NITROGEN 6 mg/dl (7-17); GFR AFRICAN-AMERICAN > 60; GFR NON-AFRICAN AMERICAN > 60
--- NOTE | 2017-09-09 16:08 | US ---
PROCEDURE: OB Pelvic Ultrasound HISTORY: pain of LMP: 06/02/2017 suggesting 14 week 1 day gestation. COMPARISON: Prior obstetric ultrasound dated 08/12/2017 indicating single IUP 11 weeks 1 day. FINDINGS: UTERUS: Gestational sac: A single intrauterine gestation is identified in breech lie with a posterior left fundal placenta covering the internal os of the cervix with a large associated subplacental hemorrhage at its mid and superior portion measuring 6.7 x 1.4 cm, minimum. No definite myometrial pathology appreciated in the interval. cardiac activity is recorded at 145 beats per minute. The following mean parameters were obtained: Biparietal diameter 2.9 cm corresponds to 15 weeks 2 days. Head circumference 10.3 cm corresponds to 14 weeks 6 days. Abdominal circumference 9.0 cm corresponds to 15 weeks 1 day. Femur length 1.7 cm corresponds to 15 weeks 0 days. age (Ultrasound estimated): 15 weeks 1 day, representing normal interval growth compared prior obstetric ultrasound noted above. Date of delivery (Ultrasound estimated) : 03/02/2018 CERVIX: Measures 4.1 cm. Long and closed. No cervical abnormality seen. RIGHT OVARY: Not identified. LEFT OVARY: Not identified. FREE FLUID: None. OTHER FINDINGS: None. IMPRESSION: A single viable intrauterine gestation is identified in breech lie with an average ultrasonic age of 15 weeks 1 day representing normal growth compared a prior obstetric ultrasound dated 08/12/17. Cardiac activity measures 145 beats per minute. Placenta previa is identified and a moderately large placental abruption is appreciated at the mid to superior distribution of the placenta as well. Findings discussed Dr. Mann 09/09/2017 4 o'clock p.m..
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
[2017-09-09 18:17] VITALS: BP 110/68; PULSE 73; RESP 15; TEMP 98.1; O2SAT 98
== END 2017-09-09 18:17 | disposition home or self-care (01) ==
LOC: H.ER 13:24
DX: O44.00 Complete placenta previa NOS or without hemorrhage, unspecified trimester (principal); O45.92 Premature separation of placenta, unspecified, second trimester; V43.52XA Car driver injured in collision with other type car in traffic accident, initial encounter; Y92.410 Unspecified street and highway as the place of occurrence of the external cause; O99.332 Smoking (tobacco) complicating pregnancy, second trimester; Z3A.15 15 weeks gestation of pregnancy
CPT/HCPCS: 76815; 80048; 81025; 84702; 85025; 96374; 99284; J2765; J7030

== ENCOUNTER 2017-10-10 15:43 | Emergency (ER) | payer MEDICAID ==
[2017-10-10 15:43] VITALS: BMI 23.0
[2017-10-10 15:49] VITALS: TEMP 98; O2SAT 98
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
[2017-10-10 16:48] LABS: BASO % 0.6 % (0.0-2.0); EOS # 0.2 K/uL (0.0-0.7); EOS % 2.8 % (0.0-4.0); HEMOGLOBIN 10.7 g/dL (12.0-16.0); LYMPH # 1.5 K/uL (1.0-4.3); LYMPH % 21.9 % (20.0-40.0); MEAN CELL VOLUME 85.5 fl (81.0-99.0); MEAN CORPUSCULAR HGB CONC 32.7 g/dL (33.0-37.0); MEAN PLATELET VOLUME 8.4 fl (7.2-11.7); MONO # 0.5 K/uL (0.0-0.8); MONO % 7.9 % (0.0-10.0); NEUT # 4.6 K/uL (1.8-7.0); NEUT % 66.8 % (50.0-75.0); RBC 3.81 Mil/uL (3.80-5.20); RED CELL DISTRIBUTION WIDTH 15.6 % (11.5-14.5); WHITE BLOOD COUNT 6.8 K/uL (4.8-10.8)
[2017-10-10 17:02] LABS: PARTIAL THROMBOPLASTIN TIME 33.6 Seconds (25.6-37.1)
[2017-10-10 17:09] LABS: ALB/GLOB RATIO 1.3 (1.0-2.1); ALT/SGPT 22 U/L (9-52); AST/SGOT 20 U/L (14-36); BLOOD UREA NITROGEN 6 mg/dl (7-17); CALCIUM 8.8 mg/dL (8.4-10.2); GFR AFRICAN-AMERICAN > 60; GFR NON-AFRICAN AMERICAN > 60; LIPASE 45 U/L (23-300)
[2017-10-10 17:15] LABS: SQUAMOUS EPITHIAL 13 /hpf (0-5); URINE BACTERIA MOD (<OCC); URINE BILIRUBIN NEGATIVE (NEGATIVE); URINE BLOOD LARGE (NEGATIVE); URINE CLARITY CLOUDY (Clear); URINE COLOR YELLOW (YELLOW); URINE GLUCOSE (UA) NEG (Normal); URINE LEUKOCYTE ESTERASE LARGE Leu/uL (Negative); URINE PROTEIN NEGATIVE (NEGATIVE); URINE UROBILINOGEN 0.2-1.0 mg/dL (0.2-1.0)
[2017-10-10] MEDS ORDERED: Iodixanol 320 MG/ML 100 ML BOTTLE IV ONE (17:22)
[2017-10-10] MEDS ORDERED: Sodium Chloride 0.9% 50 ML IV ONE (17:22)
--- NOTE | 2017-10-10 17:49 | US ---
Date of service: 10/10/2017 PROCEDURE: Bilateral lower extremity venous duplex Doppler. HISTORY: b/l COMPARISON: None available. TECHNIQUE: Bilateral common femoral, superficial femoral, popliteal and posterior tibial veins were evaluated. Flow was assessed with color Doppler, compressibility, assessment of phasic flow and augmentation response. FINDINGS: COMMON FEMORAL VEIN: Right CFV: Unremarkable. Left CFV: Unremarkable. SUPERFICIAL FEMORAL VEIN: Right SFV: Unremarkable. Left SFV: Unremarkable. POPLITEAL VEIN: Right Popliteal: Unremarkable. Left Popliteal: Unremarkable. POSTERIOR TIBIAL VEIN: Right PTV: Unremarkable. Left PTV: Unremarkable. OTHER FINDINGS: None. IMPRESSION: No evidence of deep venous thrombosis.
--- NOTE | 2017-10-10 18:24 | CT ---
Date of service: 10/10/2017 PROCEDURE: CT Chest with contrast (Pulmonary Angiogram) HISTORY: chest pain, 21 days COMPARISON: CT angiography of the pulmonary arteries performed 04/24/2016. TECHNIQUE: Axial computed tomography images were obtained of the chest in the pulmonary arterial phase of enhancement. Coronal and sagittal reformatted images were created and reviewed. Intravenous contrast dose: 80 mL Visipaque 320 Radiation dose: Total exam DLP = 210.1 mGy-cm. This CT exam was performed using one or more of the following dose reduction techniques: Automated exposure control, adjustment of the mA and/or kV according to patient size, and/or use of iterative reconstruction technique. FINDINGS: PULMONARY ARTERIES: Unremarkable. No pulmonary embolism. AORTA: No acute findings. No thoracic aortic aneurysm. LUNGS: Unremarkable. No nodule, mass or pulmonary consolidation. PLEURAL SPACES: Unremarkable. No effusion or pneumothorax. HEART: Unremarkable. No cardiomegaly. No significant pericardial effusion. LYMPH NODES: No lymphadenopathy. BONES, CHEST WALL: Unremarkable. No fracture or destructive lesion OTHER FINDINGS: Unremarkable. IMPRESSION: Unremarkable CT pulmonary angiogram. No pulmonary embolus.
--- NOTE | 2017-10-10 18:29 | RAD ---
Date of service: 10/10/2017 HISTORY: chest pain COMPARISON: No prior. FINDINGS: LUNGS: No active pulmonary disease. PLEURA: No significant pleural effusion identified, no pneumothorax apparent. CARDIOVASCULAR: Normal. OSSEOUS STRUCTURES: No significant abnormalities. VISUALIZED UPPER ABDOMEN: Excreted intravenous contrast in both collecting systems. OTHER FINDINGS: None. IMPRESSION: No active disease.
[2017-10-10 19:29] VITALS: BP 120/61; RESP 18
[2017-10-11 10:49] VITALS: PULSE 74
--- NOTE | 2017-10-11 12:32 | CARD ---
APPROVED REPORT Date of service: 10/10/2017 EKG Measurement Heart [id number] <Conclusion> Normal sinus rhythm Normal ECG
== END 2017-10-10 19:30 | disposition home or self-care (01) ==
LOC: H.ER 15:43
DX: R07.89 Other chest pain (principal); F17.210 Nicotine dependence, cigarettes, uncomplicated
CPT/HCPCS: 71045; 71275; 80053; 81003; 81025; 83690; 84484; 85025; 85610; 85730; 93005; 93970; 96374; 96375; 99285; J2270; J2405; Q9967

== ENCOUNTER 2018-05-05 14:13 | Emergency (ER) | payer MEDICAID, OTHER ==
[2018-05-05 14:13] VITALS: BMI 23.0
[2018-05-05 14:21] VITALS: BP 116/72; PULSE 80; RESP 18; TEMP 98.3; O2SAT 100
--- NOTE | 2018-05-05 15:40 | ED PDOC ---
HPI: General Adult Time Seen by Provider: 05/05/18 15:23 Chief Complaint (Nursing): Abdominal Pain Past Medical History Vital Signs: Last Vital Signs Temp 98.3 F 05/05/18 14:18 Pulse 80 05/05/18 14:18 Resp 18 05/05/18 14:18 BP 116/72 05/05/18 14:18 Pulse Ox 100 05/05/18 14:18 - Medical History PMH: Kidney Stones, Chronic Kidney Disease - Family History Family History: States: Unknown Family Hx - Immunization History Hx Tetanus Toxoid Vaccination: Yes Hx Influenza Vaccination: Yes Hx Pneumococcal Vaccination: No - Home Medications Home Medications: Ambulatory Orders Medication Instructions Recorded Acetaminophen [Tylenol Extra 500 mg PO Q6 #20 tablet 05/07/16 Strength] Fluconazole [Diflucan] 150 mg PO ONCE #1 tab 05/31/16 Ibuprofen [Motrin Tab] 1 tab PO Q6 PRN #15 tab 05/31/16 Nitrofurantoin Macrocrystals 100 mg PO BID #14 cap 05/31/16 [Macrobid] Naproxen [Naprosyn Tab] 375 mg PO Q12 PRN #20 tab 06/07/16 Ondansetron [Zofran] 4 mg PO Q8H PRN #10 tab 06/07/16 Naproxen [Naprosyn] 500 mg PO BID PRN #30 tab 07/03/16 Ondansetron ODT [Zofran ODT] 4 mg PO TID #21 odt 07/03/16 Ibuprofen [Motrin Tab] 1 tab PO Q6 PRN #20 tab 09/06/16 Naproxen [Naprosyn] 500 mg PO Q12 PRN #20 tablet 11/29/16 Doxycycline Monohydrate 100 mg PO BID 7 Days capsule 02/27/17 Amoxicillin 500 mg PO TID #30 tablet 04/04/17 Guaifenesin/Pseudoephedrne HCl 1 ter PO Q12H PRN #10 ter 04/04/17 [Mucinex D 600 mg-60 mg] Naproxen [Naprosyn] 500 mg PO BID PRN #10 tablet 04/04/17 Cephalexin [Keflex] 500 mg PO QID #28 capsule 05/03/17 Sulfamethoxazole/Trimethoprim 1 tab PO BID #14 tab 05/03/17 [Bactrim DS 800 mg-160 mg] Cephalexin [cephalexin] 500 mg PO Q6 #28 cap 10/10/17 - Allergies Allergies/Adverse Reactions: Allergies Allergy/AdvReac Type Severity Reaction Status Date / Time No Known Allergies Allergy Verified 05/05/18 14:21 Physical Exam - Reviewed Nursing Documentation Reviewed: Yes Vital Signs Reviewed: Yes - Physical Exam Appears: Positive for: Non-toxic, No Acute Distress Head Exam: Positive for: ATRAUMATIC, NORMAL INSPECTION, NORMOCEPHALIC Skin: Positive for: Normal Color, Warm, Dry Eye Exam: Positive for: EOMI, Normal appearance, PERRL Neck: Positive for: Normal, Painless ROM, Supple Cardiovascular/Chest: Positive for: Regular Rate, Rhythm. Negative for: Murmur Respiratory: Positive for: Normal Breath Sounds. Negative for: Respiratory Distress - ECG O2 Sat by Pulse Oximetry: 100 (RA) Pulse Ox Interpretation: Normal Medical Decision Making Medical Decision Making: Time: Impression: Pelvic pain and vaginal bleeding, r/o miscarriage. Plan: Scribe Attestation: Documented by Torito Gomez, acting as a scribe for Bethany Senior MD. Provider Scribe Attestation: All medical record entries made by the Scribe were at my direction and personally dictated by me. I have reviewed the chart and agree that the record accurately reflects my personal performance of the history, physical exam, medical decision making, and the department course for this patient. I have also personally directed, reviewed, and agree with the discharge instructions and disposition. Disposition - Disposition
--- NOTE | 2018-05-05 15:42 | ED PDOC ---
HPI: Female Pain Time Seen by Provider: 05/05/18 15:23 Chief Complaint (Nursing): Abdominal Pain Chief Complaint (Provider): Pelvic Pain History Per: Patient History/Exam Limitations: no limitations Onset/Duration Of Symptoms: Days (x4) Current Symptoms Are (Timing): Still Present Additional Complaint(s): Patient is a 22 y/o female, 14 weeks , with a PMHx of kidney stones and chronic kidney disease who presents to the ED for evaluation of bilateral pelvic pain for the past four days. 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 Patient was in contact with PCP who recommended bed rest. Of note, patient states she has a subchorionic hematoma. Patient denies nausea, vomiting, and diarrhea. PCP: None Provided : 3 Para: 2 Past Medical History Reviewed: Historical Data, Nursing Documentation, Vital Signs Vital Signs: Last Vital Signs Temp 98.3 F 05/05/18 14:18 Pulse 80 05/05/18 14:18 Resp 18 05/05/18 14:18 BP 116/72 05/05/18 14:18 Pulse Ox 100 05/05/18 15:39 - Medical History PMH: Kidney Stones, Chronic Kidney Disease - Surgical History Surgical History: No Surg Hx - Family History Family History: States: Unknown Family Hx - Immunization History Hx Tetanus Toxoid Vaccination: Yes Hx Influenza Vaccination: Yes Hx Pneumococcal Vaccination: No - Home Medications Home Medications: Ambulatory Orders Medication Instructions Recorded Acetaminophen [Tylenol Extra 500 mg PO Q6 #20 tablet 05/07/16 Strength] Fluconazole [Diflucan] 150 mg PO ONCE #1 tab 05/31/16 Ibuprofen [Motrin Tab] 1 tab PO Q6 PRN #15 tab 05/31/16 Nitrofurantoin Macrocrystals 100 mg PO BID #14 cap 05/31/16 [Macrobid] Naproxen [Naprosyn Tab] 375 mg PO Q12 PRN #20 tab 06/07/16 Ondansetron [Zofran] 4 mg PO Q8H PRN #10 tab 06/07/16 Naproxen [Naprosyn] 500 mg PO BID PRN #30 tab 07/03/16 Ondansetron ODT [Zofran ODT] 4 mg PO TID #21 odt 07/03/16 Ibuprofen [Motrin Tab] 1 tab PO Q6 PRN #20 tab 09/06/16 Naproxen [Naprosyn] 500 mg PO Q12 PRN #20 tablet 11/29/16 Doxycycline Monohydrate 100 mg PO BID 7 Days capsule 02/27/17 Amoxicillin 500 mg PO TID #30 tablet 04/04/17 Guaifenesin/Pseudoephedrne HCl 1 ter PO Q12H PRN #10 ter 04/04/17 [Mucinex D 600 mg-60 mg] Naproxen [Naprosyn] 500 mg PO BID PRN #10 tablet 04/04/17 Cephalexin [Keflex] 500 mg PO QID #28 capsule 05/03/17 Sulfamethoxazole/Trimethoprim 1 tab PO BID #14 tab 05/03/17 [Bactrim DS 800 mg-160 mg] Cephalexin [cephalexin] 500 mg PO Q6 #28 cap 10/10/17 - Allergies Allergies/Adverse Reactions: Allergies Allergy/AdvReac Type Severity Reaction Status Date / Time No Known Allergies Allergy Verified 05/05/18 14:21 Review of Systems ROS Statement: Except As Marked, All Systems Reviewed And Found Negative Gastrointestinal: Positive for: Abdominal Pain. Negative for: Nausea, Vomiting, Diarrhea Genitourinary Female: Positive for: Vaginal Bleeding, Pelvic Pain (bilaterally; began and hurts more on right) Physical Exam - Reviewed Nursing Documentation Reviewed: Yes Vital Signs Reviewed: Yes - Physical Exam Appears: Positive for: No Acute Distress Head Exam: Positive for: ATRAUMATIC, NORMAL INSPECTION, NORMOCEPHALIC Skin: Positive for: Normal Color, Warm, Dry Eye Exam: Positive for: EOMI, Normal appearance, PERRL Neck: Positive for: Normal, Painless ROM, Supple Cardiovascular/Chest: Positive for: Regular Rate, Rhythm. Negative for: Murmur Respiratory: Positive for: Normal Breath Sounds. Negative for: Respiratory Distress Gastrointestinal/Abdominal: Positive for: Tenderness (lower) Extremity: Positive for: Normal ROM. Negative for: Pedal Edema, Deformity Neurologic/Psych: Positive for: Alert, Oriented. Negative for: Motor/Sensory Deficits - Laboratory Results Result Diagrams: 05/05/18 16:22 05/05/18 16:22 - ECG O2 Sat by Pulse Oximetry: 100 (RA) Pulse Ox Interpretation: Normal - Progress Re-evaluation Time: 19:50 Condition: Re-examined, Improved Medical Decision Making Medical Decision Making: Time: 1606 Impression: Pelvic pain and vaginal bleeding, r/o miscarriage. Plan: Type and Screen BMP Serum Urine Urine Dipstick CBC OB Tranvaginal [US] Time: 1639 US findings: Technique: Ultrasound uterus. Real-time sonographic images of the uterus were obtained. Bladder was incompletely distended and the study was limited. There is a single live in August gestation in a variable presentation at the time of the study. cardiac activity is identified. The exact location of the placenta is difficult to evaluate on the current study. Amniotic fluid appears within normal limits. Cervical osseous appears closed. Biparietal diameter is 2.83 cm corresponding to 15 weeks 1 day. Head circumference 10.28 cm corresponding to 14 weeks and 5 days. Abdominal circumference is 7.73 cm corresponding to 14 weeks and 2 days. Femur length is 1.55 cm corresponding to 14 weeks and 3 days. Estimated weight is 97.89 g. Head circumference to abdominal circumference ratio is 1.29. Prominent nuchal fold may be present. Impression: Technically limited study due to incomplete distention of the bladder. Single live intrauterine gestation of approximately 14 weeks and 5 days. EDC is 10/29/2018. Possible prominent nuchal fold. Close clinical correlation and follow-up study recommended. Scribe Attestation: Documented by Torito Gomez, acting as a scribe for Bethany Senior MD. Provider Scribe Attestation: All medical record entries made by the Scribe were at my direction and personally dictated by me. I have reviewed the chart and agree that the record accurately reflects my personal performance of the history, physical exam, medical decision making, and the department course for this patient. I have also personally directed, reviewed, and agree with the discharge instructions and disposition. Disposition - Clinical Impression Clinical Impression: Abdominal pain during - Patient ED Disposition Is Patient to be Admitted: No Doctor Will See Patient In The: Office Counseled Patient/Family Regarding: Studies Performed, Diagnosis, Need For Followup - Disposition Referrals: Mina Ramirez, DNP, TELEGRAPH EDITOR [Family Provider] - Disposition: Routine/Home Disposition Time: 19:51 Condition: GOOD Additional Instructions: JESSICA MENA, thank you for letting us take care of you today. Your provider was Bethany Senior MD and you were treated for 14 WKS PREG, ABD PAIN. The emergency medical care you received today was directed at your acute symptoms. If you were prescribed any medication, please fill it and take as directed. It may take several days for your symptoms to resolve. Return to the Emergency Department if your symptoms worsen, do not improve, or if you have any other problems. Please contact your doctor or call one of the physicians/clinics you have been referred to that are listed on the Patient Visit Information form that is included in your discharge packet. Bring any paperwork you were given at discharge with you along with any medications you are taking to your follow up visit. Our treatment cannot replace ongoing medical care by a primary care provider outside of the emergency department. Thank you for allowing the [facility] team to be part of your care today. If you had an X-Ray or CT scan: A Radiologist will review the ED reading if any change in treatment is needed we will contact you. If you had a blood, urine, or wound culture: It will take several days for the results, if any change in treatment is needed we will contact you. If you had an STI test: It will take 48 hours for the results. Please call after 1 week if you have not heard back. Instructions: Threatened Miscarriage (DC), Bleeding With (DC)
[2018-05-05 16:42] LABS: BASO % 0.4 % (0.0-2.0); EOS # 0.1 K/uL (0.0-0.7); EOS % 1.3 % (0.0-4.0); HEMOGLOBIN 11.2 g/dL (12.0-16.0); LYMPH # 1.3 K/uL (1.0-4.3); LYMPH % 16.7 % (20.0-40.0); MEAN CORPUSCULAR HEMOGLOBIN 26.5 pg (27.0-31.0); MEAN CORPUSCULAR HGB CONC 33.2 g/dL (33.0-37.0); MEAN PLATELET VOLUME 8.5 fl (7.2-11.7); MONO # 0.5 K/uL (0.0-0.8); MONO % 6.6 % (0.0-10.0); NEUT # 5.9 K/uL (1.8-7.0); RBC 4.25 Mil/uL (3.80-5.20); RED CELL DISTRIBUTION WIDTH 20.7 % (11.5-14.5); WHITE BLOOD COUNT 7.9 K/uL (4.8-10.8)
[2018-05-05 16:45] LABS: MEAN CELL VOLUME 79.6 fl (81.0-99.0)
[2018-05-05 16:53] LABS: BLOOD UREA NITROGEN 9 mg/dl (7-17); CALCIUM 9.6 mg/dL (8.4-10.2); GFR NON-AFRICAN AMERICAN > 60
--- NOTE | 2018-05-06 11:56 | US ---
Date of service: 05/05/2018 PROCEDURE: OB Pelvic Ultrasound HISTORY: Pelvic pain LMP: 01/27/2018 COMPARISON: None available. FINDINGS: UTERUS: Gestational sac: Single live intrauterine fetus in variable presentation. Heart rate: 152 bpm. BPD: 2.8 cm corresponding to 15 weeks and 1 day of gestational age. HC: 10.19 cm corresponding to 14 weeks and 5 days of gestational age. AC: 7.88 cm corresponding to 14 weeks and 2 days of gestational age. FL: 1.52 cm corresponding to 14 weeks and 3 days of gestational age. age (Ultrasound estimated): 14 weeks and 5 days Elsa-gestational hemorrhage: None. Date of delivery (Ultrasound estimated) : 10/29/2018 Placenta is anterior. CERVIX: Measures cm. Long and closed. No cervical abnormality seen. RIGHT OVARY: Not visualized. LEFT OVARY: Not visualized. FREE FLUID: None. OTHER FINDINGS: There is question of a prominent nuchal fold. IMPRESSION: Single live intrauterine fetus in variable presentation with mean gestational age of 14 weeks and 5 days. The estimated date of delivery by ultrasound is 10/29/2018. The ultrasound dates correspond with the clinical dates. Please note this is a limited OB ultrasound performed on a non emergent basis. There is question of prominent nuchal fold. Dedicated anatomic survey and clinical follow-up is advised for further evaluation. A preliminary report was provided by [facility].
== END 2018-05-05 20:37 | disposition home or self-care (01) ==
LOC: H.ER 14:13
DX: O26.892 Other specified pregnancy related conditions, second trimester (principal); Z3A.14 14 weeks gestation of pregnancy

== ENCOUNTER 2018-07-01 10:35 | Emergency (ER) | payer MEDICAID ==
[2018-07-01 11:55] VITALS: BMI 24.4
[2018-07-01 12:47] LABS: HEMOGLOBIN 11.3 g/dL (12.0-16.0); MEAN CELL VOLUME 85.9 fl (81.0-99.0); MEAN CORPUSCULAR HEMOGLOBIN 28.9 pg (27.0-31.0); MEAN CORPUSCULAR HGB CONC 33.7 g/dL (33.0-37.0); RBC 3.91 Mil/uL (3.80-5.20); RED CELL DISTRIBUTION WIDTH 15.4 % (11.5-14.5); WHITE BLOOD COUNT 10.1 K/uL (4.8-10.8)
[2018-07-01 13:32] LABS: SQUAMOUS EPITHIAL 6 /hpf (0-5); URINE BACTERIA FEW (<OCC); URINE BILIRUBIN NEGATIVE (NEGATIVE); URINE BLOOD NEGATIVE (NEGATIVE); URINE CLARITY SLIGHTY-CLOUDY (Clear); URINE COLOR YELLOW (YELLOW); URINE GLUCOSE (UA) NEG (NEGATIVE); URINE LEUKOCYTE ESTERASE NEG Leu/uL (Negative); URINE PROTEIN NEGATIVE (NEGATIVE); URINE UROBILINOGEN 0.2-1.0 mg/dL (0.2-1.0)
[2018-07-01] MEDS ORDERED: Lactated Ringer's 1,000 ML IV SCH (13:45)
--- NOTE | 2018-07-01 14:27 | OBHP ---
Datetime: 07/01/2018 11:23 IP Adm Impression: , intrauterine IP Admit Plan: Observation/Evaluation Admit Comment, IP Provider: 22 YO with IUP at EGA 22.1 weeks as per LMP 01/27/18, EDC 9, who presents to EDOB with c/o RLQ abdominal pain that started at 6 AM, woke her up from her sleep, is sharp, constant, 6/10 in intensity. Patient denies association of the pain with N/V/D/C, chills, fever, dysuria, or other medical complaint at present. Patient denies VB, LOF, CONTX. Patient endorse s +FM, Patient reports feeling hungry. ROS: all other systems reviewed and negative unless noted in HPI OBGYN: First 2016 , 2nd 2018 miscarriage at 16 weeks. Patient reports h/o sub-chorionic hematoma in this which resolved at 18 weeks, denies other problems with curre nt pregnancies. provider: Dr Jama at [facility] PMH: Denies FMH: denies Meds: PNV Surgical Hx: Denies SOCHx: denies ETOH, smoking, drug use ALLERG: NKA Labs: patient reports normal labs during , labs not available at this time of evaluation. PE: GEN: no acute distress. VS: WNL, afebrile 98.3F Abd: Gravid, BS present, soft, tenderness to palpation of RLQ with mild guarding. Ext: No pedal edema A/P 22 YO with IUP at EGA 22.1 weeks with c/o RLQ abdominal pain, 6/10 since 6 AM with no associated N /V. Patient is afebrile, and reports feels hungry. Impression: Abdominal pain likely secondary to muscular tenderness or round ligament tenderness in . Will r/o other causes including appendicitis. -Observation and eval in L_D -NPO for now -Maternal VS monitoring -FHR monitoring -CBC w/diff -UA stat Case reviewed, seen and discussed with attending Dr Celia Shafer MD PGY1 Addendum by Dr. Yang: I have evaluated the patient independently and I agree with the above. The patient presents with RLQ pain with gaurding. No fever, no vomiting/nausea/diarreha, pt reports she h ad no food this morning and is hungry. No vaginal bleeding or other OB pertinent signs. Vital signs s table, no urinary discomfort, no medical problems/surgical history, previous delivery was vaginal. Lex barrera has no fundal tenderness, no CVA tenderness. CBC drawn showed WB = 10, UA negative. Re-evaluate d patient, gaurding still present. WIll order abdominal U/S to rule out appenditis, ovarian torsion, ruptured cyst Lungs - PN: Normal Heart - PN: Normal HEENT - PN: Normal General - PN: Normal FHR - Baseline A Provider: 140 Comments, ACOG Physical Exam: see triage comments EGA AdmitDate IP: 22.1 Vital Signs Provider: Reviewed; Within Normal Limits IP Chief Complaint: Maternal discomfort NICHD Variability Prov Fetus A: Absent - Undetectable
--- NOTE | 2018-07-01 16:47 | OBPN ---
Datetime: 07/01/2018 16:40 IP Progress Plan: Discharge FHR - Baseline A Provider: 150 IP Progress Note Comment: Patient re-evaluated after returning from U/S. Patient continues to still be afebrile - T=98.5. HR in 70s, BP nml. No new syptoms - no urinary discomfort, no CP, no SOB, no N/ V/D, no vaginal bleeding, no back pain. Patient subjectively has improved, has mild pain on palpation , has no peritoneal signs, no rebound, no gaurding. Patient smiling, hungry and asking for food. PO c hallenge given to patient, pt tolerated food and not nauseous. Will discharge patient home, pain prec autions and labor precautions reviewed. Patient has OB appt tomorrow - all questions answered Vital Signs Provider: Reviewed; Within Normal Limits Datetime: 07/01/2018 11:23 NICHD Variability Prov Fetus A: Absent - Undetectable
--- NOTE | 2018-07-01 16:48 | US ---
Date of service: 07/01/2018 PROCEDURE: Limited obstetrical ultrasound HISTORY: RLQ pain, rule out ovarian torsion, cyst rupture, COMPARISON: 05/05/2018. TECHNIQUE: Standard protocol for this study/examination. FINDINGS: Transverse presentation. Anterior placenta. Partial previa identified. No evidence of abruption spur. Gestational age derived from LMP 22 weeks 1 day. KAE 11/03/2018. Gestational age derived from the following biometric parameters 22 weeks 3 days. KAE 11/01/2018 Biparietal diameter 5.38 cm Head circumference 19.61 cm Abdominal circumference 17.30 cm Femur length 4.11 cm Estimated weight 520.1 g Calculated cardiac rate 149 beats per min. Closed cervix measuring 6.61 cm Nonvisualization of the appendix. IMPRESSION: Twenty-two weeks 3 days live intrauterine gestation. Gestational concordance documented. Adequate interval progression compared to the prior study. Low lying anterior placenta, partial previa without abruption. Limitations of the current examination: Nonvisualization of the appendix.
--- NOTE | 2018-07-01 16:52 | OBDCSUM ---
Datetime: 07/01/2018 16:43 Discharged to, Provider: Home Follow up at, Provider: Dr. Dyer in [place], [place]. Disch Instr Activity: Normal activity Disch Instr Diet: Regular Discharge Time: 07/01/2018 16:43 Follow up in weeks, Provider: 07/02/2018 at 1000 Disch Referrals: None Discharge Diagnosis Prov Other: unspecified abdominal pain
[2018-07-01 21:20] VITALS: BP 107/61; PULSE 90; RESP 18; TEMP 98.5; O2SAT 100
== END 2018-07-01 16:43 | disposition home or self-care (01) ==
LOC: H.EROB2 10:35 → H.L&D 11:56 → H.EROB2 16:43
DX: O26.92 Pregnancy related conditions, unspecified, second trimester (principal); R10.2 Pelvic and perineal pain; Z3A.22 22 weeks gestation of pregnancy
CPT/HCPCS: 76815; 81003; 85027; 99284; J7120